=== PATIENT | male | born 1995 | race Two or more races ===

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

== ENCOUNTER 2018-04-19 18:26 | Emergency (ER) | payer OTHER ==
--- NOTE | 2018-04-19 19:55 | EDPHY ---
General Time Seen by Provider: 04/19/18 19:54 Narrative: CLINICAL IMPRESSION: Runny nose, congestion, myalgias ASSESSMENT/PLAN: Patient is a 22-year-old male with a history of acne who presents to the emergency department complaining of runny nose, congestion, generalized headache and myalgias. Patient is afebrile, in no acute distress and nontoxic appearing. His vital signs were reviewed and no findings to suggest sepsis or serious bacterial illness. Laboratory studies were obtained including influenza which was negative. History and physical examination is most consistent with upper respiratory infection, likely viral in nature. There is no evidence of significant sinusitis, meningitis, pneumonia or serious bacterial illness. The patient was given ibuprofen with improvement of his symptoms. The patient will continue to be treated symptomatically and is instructed to followup with PCP for reevaluation within the next 2-3 days. On re-examination prior to discharge this patient is stable and well-appearing, his abdomen is soft and non-tender, no petechial rash and his neck supple. The patient is a student at [employer], he will either follow up at [facility] or with PCP referral provided. Strict return precautions discussed- the patient will return for significantly worsening symptoms, high fevers, neck stiffness, difficulty swallowing, chest pain, shortness of breath, signs of dehydration or for any other concerning symptom. The patient verbalizes understanding and he is in agreement with this plan. DIFFERENTIAL DX: Differential diagnosis includes but not limited to and in no certain order viral upper respiratory infection, sinusitis, meningitis, influenza a, pneumonia ED COURSE: 2039: Case discussed with Dr. Merida CHIEF COMPLAINT: Runny nose, congestion, myalgias HPI: Patient is a 22-year-old male with a history of acne who presents to the emergency department complaining of runny nose, congestion, generalized headache and myalgias. Patient reports he went to bed feeling fine last evening , when he woke up this morning he had a generalized stomach ache and felt generally unwell. Patient stayed home from school, throughout the day he developed runny nose, congestion and a mild globalized headache. He has had headaches like this before, he denies it being the worst headache of his life. Patient endorses that his abdominal discomfort lasted for a very brief period of time, he denies any abdominal pain on arrival to the emergency department. He denies any fevers, has felt mildly hot and cold throughout the day. He denies any dizziness, visual changes, chest pain, shortness of breath or cough. He has had no nausea or vomiting. He denies any urinary symptoms to include dysuria, hematuria or increased frequency. His appetite has been poor with very little oral intake today. Denies any changes in bowel habits. No recent sick contacts, he did not get an influenza vaccine this year. PMH: Acne Family History: Noncontributory Social History: Denies illicit drug use REVIEW OF SYSTEMS: All other systems negative Constitutional: Decreased appetite. No fever. Eyes: No discharge, vision change ENT: Runny nose, congestion. No sore throat or ear pain. Cardiovascular: No chest pain, no palpitations. Respiratory: No cough, no shortness of breath. Gastrointestinal: Abdominal pain. No vomiting, diarrhea. Genitourinary: No hematuria, dysuria, flank pain. Musculoskeletal: Myalgias. No back pain, joint swelling, joint pain. Skin: No rashes, color change. Neurological: Headache. No dizziness, weakness. PHYSICAL EXAM: General Appearance: Patient is well-appearing and in no acute distress. HENT: Normocephalic, atraumatic. Bilateral external ears are normal. Bilateral tympanic membranes are normal with pearly pickett reflex. Nares are clear, mucosa is pink. Oropharynx is clear, uvula is midline. There is no tonsillar enlargement or exudate. The dentition is normal. Eyes: PERRLA, no acute vision change, nystagmus, swelling, discharge, pain or photosensitivity. Conjunctiva pink, no pallor or injection. Neck: Supple, no lymphadenopathy, no midline pain, FROM, patient with generalized cervical paraspinal muscle tenderness to palpation, no meningismus- negative Kernig, negative Brudzinski. Respiratory: There are no retractions, lungs are clear to auscultation. Cardiac: Regular rate and rhythm, no murmurs or gallops. Gastrointestinal: Abdomen is soft, nontender, bowel sounds normal, no masses/ hernia, no rigidity, guarding or focal peritoneal findings. Neurological: Alert and oriented x 3, CN 2-12 grossly intact, normal gait no ataxia, DTR's intact, normal sensation and strength Back: No step-off, palpable bony abnormality, edema, erythema or ecchymosis of the cervical, thoracic or lumbar spines. No midline thoracic or lumbar spinal tenderness to palpation. Patient with generalized bilateral thoracic and lumbar paraspinal muscle tenderness. Full range of motion of all spines. 5/5 and equal strength of the UEs and LEs bilaterally including shoulder shrug. Pulses: 2+ and equal radial, DP and PT pulses bilaterally. Sensation intact and symmetric to light touch from face, UEs and LEs bilaterally. Skin: Warm, dry, no rashes, no nodules on palpation. Musculoskeletal: Extremities are symmetrical, full range of motion, no tenderness, deformity, swelling, or erythema. Psychiatric: Patient is oriented X 3, there is no agitation. MEDICAL DECISION MAKING: Patient was seen independently. Secondary supervising physician at time of evaluation was Dr. Merida, he did not evaluate this patient. Diagnosis: URI, viral syndrome. New, requires workup Summary: See Assessment and Plan for summary of ED visit Clinical lab tests: ordered / reviewed. Independent visualization of images, tracing, or specimens: Not applicable. Decision to obtain medical records or history from someone other than the patient: No Review / Summarize previous medical records: Yes Discussed patient with another provider: Yes, Dr. Merida Patient Progress: Stable, discharged. - History Smoking Status: Heavy smoker - Objective Vital Signs: Initial Vital Signs Temperature (C) 36.6 C 04/19/18 18:46 Heart Rate 80 04/19/18 18:46 Respiratory Rate 18 04/19/18 18:46 Blood Pressure 120/76 04/19/18 18:46 O2 Sat (%) 98 04/19/18 18:46 O2 Delivery Mode Room Air Allergies/Adverse Reactions: No Known Allergies Allergy (Unverified 04/19/18 18:49) Home Medications: Medication Instructions Recorded NK [No Known Home Meds] 02/04/16 Laboratory Results: 04/19/18 19:45 Nasal Influenza A PCR NEGATIVE FOR FLU A (NEGATIVE) Nasal Influenza B PCR NEGATIVE FOR FLU B (NEGATIVE) Medications Given: Discontinued Medications Ibuprofen (Motrin) 600 mg PO EDNOW ONE Stop: 04/19/18 20:11 Last Admin: 04/19/18 20:23 Dose: 600 mg Departure - Departure Disposition: Home, Routine, Self-Care Clinical Impression: URI (upper respiratory infection), Viral syndrome Condition: Good Instructions: Upper Respiratory Infection (ED) Additional Instructions: DISCHARGE INSTRUCTIONS FROM YOUR DOCTOR Thank you for visiting our emergency department today. Please keep in mind that discharge from the emergency department does not mean that there is nothing wrong - it simply means that we have not identified an emergency condition that requires further evaluation or treatment in the hospital. You should always plan to follow up with primary care for re-evaluation of your condition in the next 2-3 days. Rest, push non-diuretic, non-caffeinated fluids, consume a healthy diet, all to help support your immune system fight infection. Consider running a coolmist humidifier in the bedroom. Consider over the counter saline nasal washes ie: Neilmed sinus rinse, [place] or [place]. For pain control: You may take Tylenol, I recommend 500-1000 mg every 6-8 hours as needed. Take with food and a full glass of water. Stop taking if this is upsetting her stomach. Do not exceed 4000 mg in a 24 hr period. You may also take ibuprofen, recommend 400 mg every 6 hr. Take with food and a full glass of water. Stop taking if this upsets her stomach. Do not exceed 2400 mg in a 24 hr period. As discussed, in the setting of a viral illness, you may develop a secondary bacterial infection, requiring an antibiotic. Watch for new or changing symptoms ie: new ear pain or drainage, increasing cough, shortness of breath, high fever, or any other concerning symptoms. Schedule a follow-up appointment with your primary care physician in the next 2- 3 days for re-evaluation, sooner for any new concerns. Return for high fever, shaking chills, severe headache, facial redness or swelling, drainage from your ears, difficulty breathing or swallowing, throat tightness, drooling, change in voice, inability to open your mouth normally, severe neck pain, neck stiffness, shortness of breath, wheezing, noisy breathing , coughing up blood, chest pain, vomiting, diarrhea, bloody stools, decreased urine output or other concerns for dehydration, bloody urine, rash, dizziness, weakness, fainting, or for any other new, worsening or worrisome symptoms. People present with illnesses and injuries in different ways, and it is always possible that we have missed something. You may always return for re-evaluation if symptoms worsen or if they are not improving or if you develop new/different symptoms. Again, thank you for choosing our emergency department. We hope that you feel better. Referrals: NONE *PRIMARY CARE P,. [Primary Care Provider] - 2-3 days, if not improved ( Follow-up [facility] in [place] or the referral provider) Tanisha Mayorga MD [[facility] [place] Primary Care Provider] - 2-3 days, if not improved Stand Alone Forms: School Excuse
[2018-04-19] MEDS ORDERED: IBUPROFEN 600 MG TAB PO ONE (20:10)
[2018-04-19 21:31] VITALS: BP 117/64
== END 2018-04-19 21:33 | disposition home or self-care (01) ==
DX: J06.9 Acute upper respiratory infection, unspecified (principal); B34.9 Viral infection, unspecified; F17.200 Nicotine dependence, unspecified, uncomplicated